=== PATIENT | male | born 1980 | race African-American/Black ===

== ENCOUNTER 2020-01-26 10:19 | Emergency (ER) | payer BC ==
[~2020-01-26] VITALS: Ht 182.9 cm; Wt 115.0 kg
[~2020-01-26 10:19] MED LIST: GLYB5TAB3 PO; METF500T16 PO
[2020-01-26 10:57] LABS: BASO % 0 % (0-3); EOS % 0 % (0-3); HEMATOCRIT 49.3 % (39.0-53.0); HEMOGLOBIN 16.3 g/dL (13.0-17.5); LYMPH # 2.2 x10^3/uL (1.0-4.8); LYMPH % 31 % (24-48); MEAN CORPUSCULAR HEMOGLOBIN 27 pg (25-35); MEAN CORPUSCULAR HGB CONC 33 g/dL (31-37); MEAN CORPUSCULAR VOLUME 82 fL (79-100); MONO # 0.6 x10^3/uL (0.0-1.1); MONO % 8 % (0-9); NEUT # 4.4 x10^3/uL (1.8-7.7); NEUT % 61 % (31-73); PLATELET COUNT 224 x10^3/uL (140-400); RED BLOOD COUNT 6.03 x10^6/uL (4.30-5.70); RED CELL DISTRIBUTION WIDTH 13.8 % (11.5-14.5); WHITE BLOOD COUNT 7.3 x10^3/uL (4.0-11.0)
--- NOTE | 2020-01-26 11:08 | RAD ---
EXAM: Chest, single view. HISTORY: Shortness of breath. COMPARISON: None. FINDINGS: A frontal view of the chest is obtained. There is suspected linear left infrahilar atelectasis or scarring. There is mild elevation of the left hemidiaphragm. There is no consolidation, pleural effusion or pneumothorax. The heart is normal in size. IMPRESSION: Suspected linear left infrahilar atelectasis or scarring. Electronically signed by: Becca Mascorro MD (01/26/2020 11:05 AM) [facility]
[2020-01-26 11:09] LABS: CALCIUM 9.9 mg/dL (8.5-10.1); CREATININE 0.9 mg/dL (0.7-1.3); GFR 112.5; POTASSIUM 3.8 mmol/L (3.5-5.1)
[2020-01-26 11:16] LABS: ALBUMIN 3.9 g/dL (3.4-5.0); ALBUMIN/GLOBULIN RATIO 1.1 (1.0-1.7); TOTAL BILIRUBIN 0.5 mg/dL (0.2-1.0); TOTAL PROTEIN 7.6 g/dL (6.4-8.2)
[2020-01-26 11:17] LABS: INFLUENZA A PATIENT NEGATIVE (NEGATIVE); INFLUENZA B PATIENT NEGATIVE (NEGATIVE)
[2020-01-26] MEDS ORDERED: ALBU2.5V8 IH (12:09)
--- NOTE | 2020-01-26 12:10 | PHYS DOC ---
Past Medical History Past Medical History: Diabetes-Type II Past Surgical History: Cholecystectomy, Other Additional Past Surgical Histo: lumbar fusion Smoking Status: Never Smoker Alcohol Use: Sober Drug Use: Marijuana General Adult EDM: Chief Complaint: SHORTNESS OF BREATH HPI: HPI: Patient is a 39 year old male with history of hypertension and diabetes mellitus who presents with complaint of shortness of breath. Patient states his mother and his sister have positive COVID 19 test and he was exposed to his mother. Patient states for the last 2 days he has had shortness of breath and dry cough with headache, sore throat, decrease of smell and taste. Patient states he had one episode of loose stool today. Patient denies vomiting, chest pain, focal neuro deficit, myalgia, neck pain, productive cough. Patient is concerned for COVID 19. Review of Systems: Review of Systems: Constitutional: Denies fever and chills Eyes: Denies change in visual acuity. [] HENT: Denies nasal congestion or sore throat. [] Respiratory: Reports cough and shortness of breath Cardiovascular: Denies chest pain or edema. [] GI: Denies abdominal pain, nausea, vomiting, bloody stools, report diarrhea. [] : Denies dysuria. [] Musculoskeletal: Denies back pain or joint pain. [] Integument: Denies rash. [] Neurologic: Denies focal weakness or sensory changes. [] Endocrine: Denies polyuria or polydipsia. [] Lymphatic: Denies swollen glands. [] Psychiatric: Denies depression or anxiety. [] Heart Score: Risk Factors: Risk Factors: DM, Current or recent (<one month) smoker, HTN, HLP, family history of CAD, obesity. Risk Scores: Score 0 - 3: 2.5% MACE over next 6 weeks - Discharge Home Score 4 - 6: 20.3% MACE over next 6 weeks - Admit for Clinical Observation Score 7 - 10: 72.7% MACE over next 6 weeks - Early Invasive Strategies Allergies: Allergies: Allergies Coded Allergies Type Severity Reaction Last Updated Verified No Known Drug Allergies 06/06/15 No Physical Exam: PE: Constitutional: Well developed, well nourished, no acute distress, non-toxic appearance, O2 sat of 97% at room air. [] HENT: Normocephalic, atraumatic, bilateral external ears normal, oropharynx moist, no oral exudates, nose normal. [] Eyes: PERRLA, EOMI, conjunctiva normal, no discharge. [] Neck: Normal range of motion, no tenderness, supple, no stridor. [] Cardiovascular:Heart rate regular rhythm, no murmur [] Lungs & Thorax: Bilateral breath sounds clear to auscultation [] Abdomen: Bowel sounds normal, soft, no tenderness, no masses, no pulsatile m asses. [] Skin: Warm, dry, no erythema, no rash. [] Back: No tenderness, no CVA tenderness. [] Extremities: No tenderness, no cyanosis, no clubbing, ROM intact, no edema. [] Neurologic: Alert and oriented X 3, normal motor function, normal sensory function, no focal deficits noted. [] Psychologic: Affect normal, judgement normal, mood normal. [] Current Patient Data: Labs: Laboratory Tests Test 01/26/20 10:42 White Blood Count 7.3 x10^3/uL (4.0-11.0) Red Blood Count 6.03 x10^6/uL (4.30-5.70) H Hemoglobin 16.3 g/dL (13.0-17.5) Hematocrit 49.3 % (39.0-53.0) Mean Corpuscular Volume 82 fL (79-100) Mean Corpuscular Hemoglobin 27 pg (25-35) Mean Corpuscular Hemoglobin Concent 33 g/dL (31-37) Red Cell Distribution Width 13.8 % (11.5-14.5) Platelet Count 224 x10^3/uL (140-400) Neutrophils (%) (Auto) 61 % (31-73) Lymphocytes (%) (Auto) 31 % (24-48) Monocytes (%) (Auto) 8 % (0-9) Eosinophils (%) (Auto) 0 % (0-3) Basophils (%) (Auto) 0 % (0-3) Neutrophils # (Auto) 4.4 x10^3/uL (1.8-7.7) Lymphocytes # (Auto) 2.2 x10^3/uL (1.0-4.8) Monocytes # (Auto) 0.6 x10^3/uL (0.0-1.1) Eosinophils # (Auto) 0.0 x10^3/uL (0.0-0.7) Basophils # (Auto) 0.0 x10^3/uL (0.0-0.2) Sodium Level 136 mmol/L (136-145) Potassium Level 3.8 mmol/L (3.5-5.1) Chloride Level 99 mmol/L (98-107) Carbon Dioxide Level 24 mmol/L (21-32) Anion Gap 13 (6-14) Blood Urea Nitrogen 12 mg/dL (8-26) Creatinine 0.9 mg/dL (0.7-1.3) Estimated GFR (Cockcroft-Gault) 112.5 BUN/Creatinine Ratio 13 (6-20) Glucose Level 114 mg/dL (70-99) H Lactic Acid Level 2.0 mmol/L (0.4-2.0) Calcium Level 9.9 mg/dL (8.5-10.1) Total Bilirubin 0.5 mg/dL (0.2-1.0) Aspartate Amino Transferase (AST) 28 U/L (15-37) Alanine Aminotransferase (ALT) 45 U/L (16-63) Alkaline Phosphatase 99 U/L (46-116) Creatine Kinase 91 U/L (39-308) Troponin I Quantitative < 0.017 ng/mL (0.000-0.055) LT-Qir-N-Type Natriuretic Peptide 5 pg/mL (0-124) Total Protein 7.6 g/dL (6.4-8.2) Albumin 3.9 g/dL (3.4-5.0) Albumin/Globulin Ratio 1.1 (1.0-1.7) Influenza Type A Antigen Negative (NEGATIVE) Influenza Type B Antigen Negative (NEGATIVE) Laboratory Tests 01/26/20 10:42 Laboratory Tests 01/26/20 10:42 Vital Signs: Vital Signs Date Time Temp Pulse Resp B/P (MAP) Pulse Ox O2 Delivery O2 Flow Rate FiO2 01/26/20 11:12 99.0 91 16 131/95 (107) 99 Room Air 99.0 EKG: EKG: [] Radiology/Procedures: Radiology/Procedures: [facility] [address] [place], [place] [id number] IMAGING REPORT Signed PATIENT: IRWIN GUARDADO IACCOUNT: [id number] : 1980 LOCATION: ER AGE: 39 SEX: M EXAM STATUS: REG ER ORD. PHYSICIAN: HALEY BRYANT MD REASON: Shortness of breath PROCEDURE: PORTABLE CHEST 1V EXAM: Chest, single view. HISTORY: Shortness of breath. COMPARISON: None. FINDINGS: A frontal view of the chest is obtained. There is suspected linear left infrahilar atelectasis or scarring. There is mild elevation of the left hemidiaphragm. There is no consolidation, pleural effusion or pneumothorax. The heart is normal in size. IMPRESSION: Suspected linear left infrahilar atelectasis or scarring. Electronically signed by: Becca Mascorro MD (01/26/2020 11:05 AM) [facility] DICTATED and SIGNED BY: BECCA MASCORRO MD DATE: 01/26/20 1105 Course & Med Decision Making: Course & Med Decision Making Pertinent Labs and Imaging studies reviewed. (See chart for detail) Evaluation of patient inertial 39-year-old male patient with exposure to COVID 19 patient and complaining of shortness of breath for 2 days. Patient had O2 sat of 97% without fever and tachycardia and hypotension. Labs and chest x-ray was unremarkable. COVID 19 test was requested as outpatient and patient was advised to follow-up with quarantine at home and follow-up with his primary care physician or ER for test result. I've spoken with the patient and/or caregivers. I've explained the patient's condition, diagnosis and treatment plan based on information available to me at this time. I've answered the patient's and/or caregivers questions and addressed any concerns. The patient and/or caregivers have a good understanding the patient's diagnosis, condition and treatment plan as can be expected at this point. Vital signs have been stabilized. The patient's condition is stable for discharge from the emergency department. The patient will pursue further outpatient evaluation with her primary care provider or other designated consulting physician as outlined in the discharge instructions. Patient and/or caregivers are agreeable to this plan of care and follow-up instructions have been explained in detail. The patient and/or caregivers have received these instructions in written format and expressed understanding of these discharge instructions. The patient and her caregivers are aware that if any significant change in condition or worsening of symptoms should prompt him to immediately return to this of the closest emergency department. If an emergent department is not readily available I would encourage him to call 911. Mirian Disclaimer: Mirian Disclaimer: This electronic medical record was generated, in whole or in part, using a voice recognition dictation system. Departure Departure Impression: Primary Impression: Suspected 2019 novel coronavirus infection Additional Impression: Dyspnea Qualified Codes: R06.00 - Dyspnea, unspecified Disposition: HOME, SELF-CARE (At 1207) Condition: STABLE Referrals: UNKNOWN PCP NAME (PCP) Patient Instructions: Shortness of Breath, Viral Infections Additional Instructions: You have a viral syndrome which may include symptoms like muscle aches, fevers, chills, runny nose, cough, sneezing, sore throat, nausea, vomiting, or diarrhea. One of the potential viruses that you may have is SARS-CoV-2, the virus that causes COVID-19, also known as the Coronavirus. You are just as likely to have a different viral infection such as the common cold, flu, etc. Most patients with the Coronavirus have mild symptoms and recover on their own. Resting, staying hydrated, and sleep based on known cases can be helpful. As of todays visit, you are well enough to go home and treat your symptoms with oral fluids and over the counter medications. Coronavirus testing is not performed on most people with mild symptoms who are being discharged from the emergency department. If Coronavirus testing was performed today the results will not be available for possibly up to 3-4 days. If your result is positive you will be contacted. Please follow the following precautions at home: 1) Stay home except to get medical care. 2) As advised by the CDC, we recommend that you stay in your home and minimize contact with other people. We do not want you to spread the infection. 3) Those who are older or have significant medical issues may have more severe symptoms from this infection. We recommend self-isolation FOR AT LEAST 7 DAYS after your 1st day of symptoms. AFTER you feel better please wait AT LEAST ANOTHER WEEK before returning to regular activities and being around other people. 4) IF you become sicker and have difficulty breathing, chest pain, are unable to eat/drink, severe vomiting, diarrhea, or weakness you may need to return to the Emergency Department. 5) You should restrict activities outside of your home, except for getting medical care. DO NOT go to work, school, or public areas. Avoid using public transportation, ride sharing, or taxis. 6) Separate yourself from other people in your home. You should use a separate bathroom if possible. 7) Avoid sharing personal household items such as dishes, cups, eating utensils, towels, etc. 8) Clean all high touch surfaces every day (door knobs, counter tops, etc). Use a household cleaning spray or wipe per label instructions. 9) Clean your hands often. Wash your hands with soap and water for at least 20 seconds. 10) Cover your mouth and nose when you cough or sneeze. 11) Throw used tissues in the trash and immediately wash your hands. For additional resources please visit the CDC website or the [facility] ([phone]), you may also call 311 for further information. Drink plenty of liquids Follow-up with your primary care physician in 3-5 days Return to ER if not getting better Follow with outpatient COVID 19 test Follow-up with quit 19 instruction provided for you Thank you for visiting [facility]. We appreciate you trusting us with your care. If any additional problems come up don't hesitate to return to visit us. Please follow up with your primary care provider so they can plan additional care if needed and know about the problem that you had. If symptoms worsen come back to the Emergency Department. Any concerning symptoms that start such as chest pain, shortness of air, weakness or numbness on one side of the body, running high fevers or any other concerning symptoms return to the ER. Scripts [COVID 19 test] No Conflict Check Prov: HALEY BRYANT MD 01/26/20 Albuterol Sulfate (PROAIR HFA INHALER) 8.5 Gm Hfa.aer.ad 2 PUFF IH PRN Q4-6HRS PRN for wheezing for 21 Days, #1 INHALER 0 Refills Prov: HALEY BRYANT MD 01/26/20 Critical Care Time Critical care time was 30 minutes exclusive of procedures. COVID-19 Assessment: COVID-19 Patient Risks: Age 65 or older: No Sign of co-morbidity: Yes Exp to person + for COVID: Yes Exp to PUI: No Travel from affected area: No Lower respiratory symptoms: Yes Fever: No Other: No PPE Use: Full PPE with N95 mask or PAPR: Yes HALEY BRYANT MD Jan 26, 2020 12:09
[2020-01-26] MEDS ORDERED: COVID 19 test (12:12)
[2020-01-26 12:15] VITALS: BP 157/89
== END 2020-01-26 12:28 | disposition home or self-care (01) ==
LOC: ER 10:30
DX: R06.00 Dyspnea, unspecified (principal); R06.02 Shortness of breath; R05 Cough; R51 Headache; I10 Essential (primary) hypertension; E11.9 Type 2 diabetes mellitus without complications; F12.90 Cannabis use, unspecified, uncomplicated; Z90.49 Acquired absence of other specified parts of digestive tract; Z98.890 Other specified postprocedural states; Z20.818 Contact with and (suspected) exposure to other bacterial communicable diseases
CPT/HCPCS: 36415; 71045; 80053; 82550; 83605; 83880; 84484; 85025; 87804; 99284

== ENCOUNTER 2021-11-21 09:02 | Emergency (ER) | payer BC, OTHER ==
[~2021-11-21] VITALS: Ht 182.9 cm; Wt 115.7 kg
[~2021-11-21 09:02] MED LIST changes: +ALBU2.5V8 IH; +COVID 19 test
[2021-11-21] MEDS ORDERED: IV NORMAL SALINE 1000ML BAG 1,000 ML IV ONE ×2 (10:00→11:30)
[2021-11-21] MEDS ORDERED: KETOROLAC 15 MG/ML VIAL. IVP ONE (10:15)
--- NOTE | 2021-11-21 10:26 | PHYS DOC ---
Past Medical History Past Medical History: Diabetes-Type II, Hypertension Additional Past Medical Histor: Gastroparesis Past Surgical History: Cholecystectomy, Other Additional Past Surgical Histo: lumbar fusion,L WRIST ORIF Smoking Status: Former Smoker Alcohol Use: None Drug Use: Marijuana General Adult EDM: Chief Complaint: NAUSEA/VOMITING/DIARRHEA HPI: HPI: Mr. Faraz MUHAMMAD is a 41 yo male with PMH of T2DM and HTN who presents to the ED for nausea, vomiting and abdominal pain. Patient states the nausea and vomiti ng first started Friday afternoon and have persisted until yesterday (11/20/2020) while the abdominal pain has been worsening as his other symptoms have improved. He states the vomiting was yellow/ green in color without any hematemesis while his nausea is chronic in nature due to his concussion. To alleviate his nausea and vomiting he has tried Zofran without improvement. Currently he is endorsing a 7/10 generalized, persistent abdominal pain that is sharp in nature. Aside from his one episode of diarrhea Friday, he has not endorsed a BM though he has endorsing flatus. He is not endorsing any fever, chills, hematemesis, hematochezia or hematuria. He denies any other associated symptoms. Patient vaccinated for COVID-19: 2 doses of Pfizer vaccine. Review of Systems: Review of Systems: Constitutional: Denies fever or chills Eyes: Denies redness or eye pain HENT: Denies nasal congestion or sore throat Respiratory: Denies cough or shortness of breath Cardiovascular: Denies chest pain or palpitations GI: Endorses abdominal pain, nausea, vomiting, and diarrhea : Denies dysuria or hematuria Musculoskeletal: Denies back pain or joint pain Integument: Denies rash or skin lesions Neurologic: Denies headache, focal weakness or sensory changes Complete systems were reviewed and found to be within normal limits, except as documented in this note. Heart Score: C/O Chest Pain: N/A Current Medications: Current Medications Medications (Trade) Dose Ordered Sig/Saw Start Time Stop Time Status Last Admin Dose Admin Famotidine (Pepcid Vial) 20 mg 1X ONCE 11/21/21 10:30 11/21/21 10:31 Ketorolac Tromethamine (Toradol 15mg Vial) 15 mg 1X ONCE 11/21/21 10:15 11/21/21 10:16 UNV Ondansetron HCl (Zofran) 4 mg 1X ONCE 11/21/21 10:30 11/21/21 10:31 Sodium Chloride 1,000 ml @ 1,000 mls/hr 1X ONCE 11/21/21 10:00 11/21/21 10:59 Allergies: Allergies: Allergies Coded Allergies Type Severity Reaction Last Updated Verified lisinopril Allergy Intermediate 11/21/21 Yes metformin Allergy Intermediate 11/21/21 Yes morphine Allergy Intermediate 11/21/21 Yes Physical Exam: PE: Constitutional: Well developed, well nourished, no acute distress, non-toxic appearance HENT: Normocephalic, atraumatic Eyes: PERRL, EOMI, conjunctiva normal, no discharge Neck: Normal range of motion, no tenderness, supple Lungs & Thorax: No respiratory distress, equal chest rise and fall Abdomen: Soft, bowel sounds present X4, generalized tenderness in all four quadrants upon light palpation Skin: Warm, dry, no erythema, no rash Back: No tenderness, no CVA tenderness Extremities: No tenderness, ROM intact, no edema Neurologic: Alert and oriented X 3, normal motor function, normal sensory f unction, no focal deficits noted Psychologic: Affect normal, judgment normal Current Patient Data: Vital Signs: Vital Signs Date Time Temp Pulse Resp B/P (MAP) Pulse Ox O2 Delivery O2 Flow Rate FiO2 11/21/21 09:29 97.9 73 17 164/87 (112) 95 Room Air 97.9 EKG: EKG: @10:46 NSR, Bradycardia (HR 56bpm), QRS 80ms, QT/QTC 398/386 ms, T wave elevations in leads V2, V3; No ST elevations Radiology/Procedures: Radiology/Procedures: [] Impression: CT ABDOMEN+PELVIS W Indication: Reason: diffuse abdominal pain / Spl. Instructions: omni 300 75ml / History: . TECHNIQUE: CT examination of the abdomen and pelvis was performed following the administration of nonionic intravenous contrast. One or more of the following dose reduction techniques were utilized: *Automated exposure control (AEC) *Adjustment of mA and/or kV according to patient size *Use of iterative reconstruction technique *CT scan done according to ALARA, or ALARA/IMAGE GENTLY FINDINGS: The visualized lung bases demonstrate mild subsegmental atelectasis. Bilateral gynecomastia is seen. There is elevation of the left hemidiaphragm. Status post cholecystectomy. Bilateral nonobstructing renal calculi noted. No hydronephrosis. The liver, spleen, pancreas, adrenal glands and kidneys are normal. Urinary bladder is normal in appearance. Diverticulosis coli is seen without bowel obstruction or inflammation. The appendix is normal. Mild atherosclerotic calcifications are seen. No lymphadenopathy or ascites is seen. Degenerative changes are seen in the spine. IMPRESSION: No evidence of acute intra-abdominal pathology. Bilateral nonobstructing renal calculi. No hydronephrosis. Diverticulosis coli without bowel inflammation or obstruction. Bilateral gynecomastia noted. Elevation of the left hemidiaphragm again noted. Course & Med Decision Making: Course & Med Decision Making Pertinent Labs and Imaging studies reviewed. (See chart for details) Mr. Faraz muhammad is a 41 yo male with PMH of T2DM and HTN who presents to the ED for Nausea, vomiting and abdominal pain. With the patient's history of T2DM and current symptoms there is a concern for diabetic gastroparesis vs gastroenteritis. While in the ED, a CBC, CMP, EKG, CT abdomen and troponins were ordered to address his current symptoms. His labs were positive for leukocytosis, hyperglycemia (183), hyponatremia and elevated CK (485). While his EKG displayed NSR, Bradycardia (HR 56) with T wave elevations in leads V2 and V3. CT abdomen did not display any evidence of acute intra-abdominal pathology. Symptomatic treatment provided with interval improvement. IV fluid hydration given. Patient stable for discharge with outpatient follow-up with PCP. Discussed findings and plan with patient, who acknowledges understanding and agreement. Mirian Disclaimer: Mirian Disclaimer: This electronic medical record was generated, in whole or in part, using a voice recognition dictation system. Departure Departure Impression: Primary Impression: Nausea vomiting and diarrhea Disposition: HOME / SELF CARE / HOMELESS Condition: STABLE Referrals: UNKNOWN PCP NAME (PCP) Patient Instructions: Abdominal Pain, [id number], Clear Liquid Diet, [id number], Gastroparesis, Nausea and Vomiting, [id number] Additional Instructions: Please follow with your PCP and/or GI specialist regarding your visit today. Scripts Hydrocodone Bit/Acetaminophen (HYDROCODONE-APAP 5-325 ) 1 Tab Tablet 0.5-1 TAB PO PRN Q6HRS PRN for PAIN, #10 TAB 0 Refills Prov: IRWIN MORELAND DO 11/21/21 Metoclopramide Hcl (REGLAN) 10 Mg Tablet 1 TAB PO QID PRN for NAUSEA, #30 TAB 0 Refills before food and bedtime Prov: IRWIN MORELAND DO 11/21/21 Famotidine (PEPCID) 20 Mg Tablet 20 MG PO BID, #14 TAB Prov: IRWIN MORELAND DO 11/21/21 IRWIN MORELAND DO Nov 21, 2021 10:26
[2021-11-21] MEDS ORDERED: ONDANSETRON PF 4 MG/2 ML VIAL. IVP ONE (10:30)
[2021-11-21] MEDS ORDERED: FAMOTIDINE 20 MG/2 ML VIAL IVP ONE (10:30)
[2021-11-21 10:38] LABS: BASO # 0.1 x10^3/uL (0.0-0.2); BASO % 1 % (0-3); EOS % 0 % (0-3); HEMATOCRIT 43.4 % (39.0-53.0); HEMOGLOBIN 14.3 g/dL (13.0-17.5); LYMPH # 3.2 x10^3/uL (1.0-4.8); LYMPH % 22 % (24-48); MEAN CORPUSCULAR HEMOGLOBIN 28 pg (25-35); MEAN CORPUSCULAR HGB CONC 33 g/dL (31-37); MEAN CORPUSCULAR VOLUME 85 fL (79-100); MONO % 7 % (0-9); NEUT # 10.2 x10^3/uL (1.8-7.7); NEUT % 70 % (31-73); PLATELET COUNT 275 x10^3/uL (140-400); RED BLOOD COUNT 5.13 x10^6/uL (4.30-5.70); RED CELL DISTRIBUTION WIDTH 14.4 % (11.5-14.5); WHITE BLOOD COUNT 14.4 x10^3/uL (4.0-11.0)
[2021-11-21 10:39] LABS: BILIRUBIN,URINE NEGATIVE (NEG); CLARITY,URINE CLEAR; COLOR,URINE AMBER; NITRITE,URINE NEGATIVE (NEG); PROTEIN,URINE 100 mg/dL (NEG-TRACE)
[2021-11-21 10:46] LABS: CREATININE 0.9 mg/dL (0.7-1.3); GFR 111.4
[2021-11-21 10:52] LABS: ALBUMIN 3.9 g/dL (3.4-5.0); ALBUMIN/GLOBULIN RATIO 0.9 (1.0-1.7); MAGNESIUM 2.2 mg/dL (1.8-2.4); TOTAL BILIRUBIN 0.6 mg/dL (0.2-1.0); TOTAL PROTEIN 8.4 g/dL (6.4-8.2)
[2021-11-21] MEDS ORDERED: IOHEXOL 300 MG/ML 100ML VIAL. IV ONE (11:00)
[2021-11-21] MEDS ORDERED: CONTRAST GIVEN. MC PRN (11:00)
[2021-11-21 11:10] LABS: BACTERIA,URINE FEW /HPF (0-FEW); RBC,URINE 0 /HPF (0-2)
[2021-11-21] MEDS ORDERED: fentaNYL PF VIAL 100 MCG/2 ML VIAL ONE (11:18)
[2021-11-21] MEDS ORDERED: fentaNYL PF VIAL 100 MCG/2 ML VIAL IV ONE (11:30)
--- NOTE | 2021-11-21 11:38 | RAD ---
Exam Date: 11/21/2021 10:[address] ABDOMEN+PELVIS W Indication: Reason: diffuse abdominal pain / Spl. Instructions: omni 300 75ml / History: . TECHNIQUE: CT examination of the abdomen and pelvis was performed following the administration of no nionic intravenous contrast. One or more of the following dose reduction techniques were utilized: *Automated exposure control (AEC) *Adjustment of mA and/or kV according to patient size *Use of iterative reconstruction technique *CT scan done according to ALARA, or ALARA/IMAGE GENTLY FINDINGS: The visualized lung bases demonstrate mild subsegmental atelectasis. Bilateral gynecomastia is seen. There is elevation of the left hemidiaphragm. Status post cholecystectomy. Bilateral nonobstructing renal calculi noted. No hydronephrosis. The liver, spleen, pancreas, adrenal glands and kidneys are normal. Urinary bladder is normal in appearance. Diverticulosis coli is seen without bowel obstruction or inflammation. The appendix is normal. Mild atherosclerotic calcifications are seen. No lymphadenopathy or ascites is seen. Degenerative changes are seen in the spine. IMPRESSION: No evidence of acute intra-abdominal pathology. Bilateral nonobstructing renal calculi. No hydronephrosis. Diverticulosis coli without bowel inflammation or obstruction. Bilateral gynecomastia noted. Elevation of the left hemidiaphragm again noted. Electronically signed by: Casa Rush MD (11/21/2021 11:36 AM) [id number]
[2021-11-21] MEDS ORDERED: METOCLOPRAMIDE HCL 10 MG/2 ML VIAL. IVP ONE (12:45)
[2021-11-21] MEDS ORDERED: diphenhydrAMINE 50 MG/ML VIAL IVP ONE (12:45)
[2021-11-21] MEDS ORDERED: METO10TA81 PO (12:49)
[2021-11-21] MEDS ORDERED: FAMO-63 PO (12:49)
[2021-11-21] MEDS ORDERED: HYDR-2761 PO (12:49)
[2021-11-21 13:04] VITALS: BP 149/65
--- NOTE | 2021-11-22 08:22 | EKG ---
[facility] [address] [place] [address] Test Date: 2021-11-21 Test Time: 10:46:36 Pat Name: IRWIN FINK Department: Room: Gender: M Delivery Mgr: : 1980 Requested By: IRWIN MORELAND Order Number: [id number] Reading MD: Hua Oates Measurements Intervals [place] Rate: 56 P: 38 DE: 140 QRS: -4 QRSD: 80 T: 22 QT: 398 QTc: 386 Interpretive Statements SINUS RHYTHM LEFTWARD AXIS Electronically Signed On 11-22-2021 14:01:24 [employer] by Hua Oates
== END 2021-11-21 13:11 | disposition home or self-care (01) ==
LOC: ER 09:02
DX: R11.2 Nausea with vomiting, unspecified (principal); R19.7 Diarrhea, unspecified; R10.84 Generalized abdominal pain; E11.9 Type 2 diabetes mellitus without complications; I10 Essential (primary) hypertension; Z87.891 Personal history of nicotine dependence; Z90.49 Acquired absence of other specified parts of digestive tract; Z88.1 Allergy status to other antibiotic agents; Z88.5 Allergy status to narcotic agent; Z88.6 Allergy status to analgesic agent
CPT/HCPCS: 36415; 74177; 80053; 81001; 82553; 83690; 83735; 84484; 85025; 93005; 96361; 96374; 96375; 99285; J1200; J1885; J2405; J2765; J3010; J3490; J7030; Q9967